=== PATIENT | female | born 1960 | race Caucasian/White ===

== ENCOUNTER → 2017-01-29 | Outpatient (CLI) | payer MEDICARE, OTHER | LOC: EMI 12:39 | DX: G35 Multiple sclerosis (principal); R90.89 Other abnormal findings on diagnostic imaging of central nervous system | CPT/HCPCS: 70551; 72141 ==

== ENCOUNTER → 2021-03-25 | Outpatient (CLI) | payer MEDICARE, OTHER | LOC: MRI 13:47 | DX: G35 Multiple sclerosis (principal); R93.7 Abnormal findings on diagnostic imaging of other parts of musculoskeletal system; R90.82 White matter disease, unspecified | CPT/HCPCS: 70551; 72141 ==